=== PATIENT | female | born 1980 | race Caucasian/White ===

== ENCOUNTER 2020-12-11 15:06 | Emergency (ER) | payer MEDICARE, OTHER ==
[~2020-12-11] VITALS: Ht 154.9 cm; Wt 67.1 kg
[2020-12-11 15:10] VITALS: BP 118/67
--- NOTE | 2020-12-11 15:23 | NUR ---
SEEN AND EXAMINEDB Aranza FITCH.
[2020-12-11] MEDS ORDERED: IBUP-1955 PO (16:17)
[2020-12-11] MEDS ORDERED: CYCL5TAB PO (16:17)
[2020-12-11] MEDS ORDERED: BACI30OI9 TP (16:21)
--- NOTE | 2020-12-11 16:30 | NUR ---
PATIENT REGISTRATION SPECIALIST AT BEDSIDE FOR WOUND DRESSING AND SPLINTING.
--- NOTE | 2020-12-11 16:49 | NUR ---
Patient discharged to home in stable condition. Written and verbal after care instructions given. Patient verbalizes understanding of instruction.
== END 2020-12-11 16:50 | disposition home or self-care (01) ==
LOC: ER 15:14
DX: S80.212A Abrasion, left knee, initial encounter (principal); S50.812A Abrasion of left forearm, initial encounter; M79.642 Pain in left hand; M79.641 Pain in right hand; R07.89 Other chest pain; Z79.899 Other long term (current) drug therapy; V49.49XA Driver injured in collision with other motor vehicles in traffic accident, initial encounter; Y93.89 Activity, other specified; Y92.488 Other paved roadways as the place of occurrence of the external cause; Y99.8 Other external cause status
CPT/HCPCS: 29125; 71045; 73130 ×2; 99284; A6403